=== PATIENT | female | born 1975 | race Caucasian/White ===

== ENCOUNTER 2020-08-19 09:10 | Outpatient (REF) | payer OTHER, MEDICAID, SELFPAY ==
--- NOTE | 2020-08-19 07:30 | PAPFT_PTH ---
PATIENT: Janet Davis LOC: [facility]#:[id number] AGE/SX: 45/F ROOM: RE08/19/[address]: Roland Eldridge : 1975 BED: DIS: 08/19/2020 SPEC #: [id number] RECD: 08/19/20 18:18 STATUS: FRENCH REQ #: [id number] JUAN CARLOS: 08/19/20 07:[address]: Roland Eldridge DEPT: [facility] Cytology RECD BY: Neyda Michael Tissues: 1 - CX/ENDOCX FOR PAP SMEARS Procedures: PAP THIN PREP/[facility] Screening HPV DNA PROBE Comments: [id number] ([place]#)
[2020-08-19 19:41] LABS: Calculated LDL 131 mg/dL (<100); Cholesterol 218 mg/dL (<200); HDL Cholesterol 51 mg/dL (40-60); TSH (W/Ref FT4) 1.66 uIU/mL (0.36-3.74); Triglyceride 181 mg/dL (<150)
== END 2020-08-19 09:30 ==
LOC: NCHCN 09:10
PROVIDERS: PCP Physician Assistant Medical; Visit Provider Physician Assistant Medical
DX: Z12.4 Encounter for screening for malignant neoplasm of cervix; Z11.51 Encounter for screening for human papillomavirus (HPV); N94.6 Dysmenorrhea, unspecified; Z00.8 Encounter for other general examination
CPT/HCPCS: 80061; 88142; 83036; 84443; 87624

== ENCOUNTER 2023-12-11 14:58 | Outpatient (REF) | payer OTHER, SELFPAY ==
[2023-12-11 20:21] LABS: ALT 27 U/L (14-59); AST 13 U/L (15-37); Albumin 3.6 g/dL (3.4-5.0); Alkaline Phosphatase 45 U/L (46-116); Anion Gap 7.7 mmol/L (3-11); BUN 22 mg/dL (7-18); Bilirubin, Total 0.2 mg/dL (0.2-1.0); CO2 28.3 mmol/L (21.0-32.0); CREATININE 0.9 mg/dL (0.55-1.02); Calcium 9.5 mg/dL (8.5-10.1); Calculated LDL 83 mg/dL (<100); Chloride 103 mmol/L (98-107); Cholesterol 190 mg/dL (<200); Estimated GFR 79.85 (mL/min/1.73m2); Glucose 108 mg/dL (74-106); HDL Cholesterol 47 mg/dL (40-60); Potassium 4.3 mmol/L (3.5-5.1); Sodium 139 mmol/L (136-145); Total Protein 7.3 g/dL (6.4-8.2); Triglyceride 302 mg/dL (<150)
== END 2023-12-11 14:59 | disposition home or self-care (01) ==
LOC: NCHCN 14:58
PROVIDERS: PCP Physician Assistant Medical; Visit Provider Physician Assistant Medical
DX: Z00.00 Encounter for general adult medical examination without abnormal findings (principal); Z13.1 Encounter for screening for diabetes mellitus; Z13.220 Encounter for screening for lipoid disorders; Z13.228 Encounter for screening for other metabolic disorders
CPT/HCPCS: 80053; 80061; 83036

== ENCOUNTER → 2023-12-13 00:24 | Outpatient (CLI) | payer OTHER, SELFPAY ==
--- NOTE | 2023-12-13 | DI.MAMMO_ITS ---
Exam(s) MAMMO SCREENING EXAM: MAMMO SCREENING CLINICAL HISTORY: SCREENING, Z12.31 TECHNIQUE: Bilateral full field digital CC and MLO mammographic images were obtained with 3D tomosyn thesis and utilizing computer aided detection (CAD). COMPARISON: This is a baseline examination. FINDINGS: Masses/Architectural Distortion: None seen. Microcalcifications: No suspicious pleomorphic-type are seen. Skin Thickening/Nipple Retraction: None. IMPRESSION: 1. No significant interval change with no specific features of malignancy noted. 2. Unless there is more urgent need, screening mammography is recommended, as per [place] [employer] guidelines. BI-RADS Category 1 - Negative Breast Density - Category B - Scattered areas of fibroglandular density Breast density category C or D implies that the patient has dense breast tissue. Dense breast tissue is very common and is not abnormal but dense breast tissue can make it harder to find cancer on a ma mmogram. Also, dense breast tissue may increase their breast cancer risk. This information about the result of the mammogram report was provided to the patient to raise their awareness. Use this report when you speak with the patient about their risks for breast cancer, which includes their family hist ory. At that time, you may recommend for more screening tests (Ultrasound or MRI) as they might be us eful based on their risk. A negative radiographic report should not delay biopsy if a dominant or clinically suspicious mass is present. Up to ten percent of cancers are not identified on mammography. A negative report may reinforce clinical impression. Adenosis and dense breasts may obscure an underlying neoplasm. False positive reports average 6 to 10%. Patient will receive a letter notifying them of these results.
== END ==
PROVIDERS: PCP Physician Assistant Medical; Visit Provider Physician Assistant Medical
DX: Z12.31 Encounter for screening mammogram for malignant neoplasm of breast (principal)
CPT/HCPCS: 77063; 77067

== ENCOUNTER 2024-04-14 10:02 | Day surgery (SDC) | payer OTHER, SELFPAY ==
[2024-04-14 10:19] VITALS: BP 134/84; PULSE 88; RESP 16; TEMP 36.5; O2SAT 97
[2024-04-14] MEDS: Lactated Ringers 1,000 ML 80 ML IV (10:34)
--- NOTE | 2024-04-14 11:20 | W.ANESPRE ---
General Info Date of Service Date Performed: 04/14/24 Height: 5 ft 6 in Weight: 118.2 kg Body Mass Index (BMI): 42.0 Surgical Procedure: Operation Date: 04/14/24 10:35 Proposed Procedure Side Surgeon p Colonoscopy Dayanara Friedman DO Actual Procedure Side Surgeon p Colonoscopy Not Applicable Dayanara Friedman, Meds Allergies and Home Medications Allergies Allergy/AdvReac Type Severity Reaction Status Date / Time erythromycin base Allergy Mild gi reaction Verified 04/14/24 10:18 amoxicillin [Amoxicillin] Allergy Unknown HIVES Verified 04/14/24 10:18 Home Medication Medication Instructions Recorded comp.stocking,thigh,long,x-lrg ##1 03/06/13 albuterol sulfate 90 mcg/actuation 2 puff inhalation Q4H PRN 01/23/24 aerosol inhaler epinephrine 0.3 mg/0.3 mL 0.3 mg IM ONCE 01/23/24 injection, auto-injector (EpiPen 2-Forest) Current Visit Medications: Current Medications Generic Name Dose Route Start Last Admin Trade Name Freq PRN Reason Stop Dose Admin Ringer's Solution 1,000 mls @ 80 mls/hr 04/14/24 06:00 04/14/24 10:34 IV 04/14/24 23:59 80 mls/hr INFUSION ILDA Administration IV Miscellaneous Supplies 1 each 04/14/24 06:00 Iv Access IV 04/14/24 23:59 DIRECTED ILDA Sodium Chloride 0 ml 04/14/24 06:00 Normal Saline Flush 10 Ml Syr IV 04/14/24 23:59 PRN PRN Sodium Chloride 0 ml 04/14/24 06:00 Normal Saline 10 Ml Vial IJ 04/14/24 23:59 DIRECTED PRN Sterile Water 0 ml 04/14/24 06:00 Water,Injection,Sterile 10 Ml Vial IJ 04/14/24 23:59 DIRECTED PRN PFSH Active Problems Active Problems: Problem Status Onset Code Polycystic ovarian disease E28.2 Sleep apnea G47.30 Fibrocystic disease of breast N60.19 Recurrent major depression F33.9 Surgical History Surgical History S/P excision of ganglion cyst left wrist Uterine fibroid s/p excision, open Tobacco Smoking/Tobacco Use Status: Never Alcohol Alcohol Intake: current Alcohol intake frequency: holidays/special occasions only Substance Use Substance use: Never Substance use type: does not use Vital Signs and Lab Results Vital Signs Most Recent Vital Signs in EMR: Most Recent Vital Signs Temp Pulse Resp BP Pulse Ox 36.5 C 88 16 134/84 97 04/14/24 10:19 04/14/24 10:19 04/14/24 10:19 04/14/24 10:19 04/14/24 10:19 Point of Care Results Point of Care Results: POC- Test(urine) Negative 04/14/24 10:19 Lab Results Blood Type / Crossmatch: No Data to Display Complete Blood Count: No Data to Display Complete Metabolic Panel: No Data to Display Liver Function Panel: No Data to Display Coagulation Panel: No Data to Display Cardiac Panel: No Data to Display Arterial Blood Gas: No Data to Display Venous Blood Gas: No Data to Display Pancreas Panel: No Data to Display Thyroid Panel: No Data to Display Infectious Disease: No Data to Display Blood Cultures: No Data to Display Toxicology Panel: No Data to Display Panel: No Data to Display Anesthesia Assessment and Plan Anesthesia History Personal History: No History of Anesthesia Complications Family History: No Family History of Anesthesia Complications Exercise Tolerance Exercise Tolerance: Metabolic Equivalents>4 Pertinent Negatives Pertinent Negatives: No Symptoms of GERD, No Major Cardiovascular Symptoms or Complaints, No Major Pulmonary Symptoms or Complaints and No History of CVA/TIA Cardiac & Pulmonary Exam Cardiac Exam: Normal S1/S2 Heart Sounds Pulmonary Exam: Clear Bilateral Breath Sounds Implantable Cardiac Device Does patient have a Pacemaker or an ICD?: No Airway Exam Known Difficult Airway: No Mallampati Class: 2 Mouth Opening: Normal (> 3cm) Thyromental Distance: Greater than 3 cm Neck Range of Motion: Full ROM Neck Circumference: Normal Teeth Condition: Normal Dentition ASA Classification ASA Score: ASA 3 Emergency Case?: No NPO Status NPO Status: NPO Clears >2 hours, Solids >8 hours Status Status: Negative HCG Anesthesia Plan Resuscitation Status: Full Code Anesthesia Technique: General Anesthesia Airway Planned: Natural Airway Monitors Used: Standard Monitors
[2024-04-14 11:21] VITALS: BMI 42.0
--- NOTE | 2024-04-14 12:08 | BOWEL_PTH ---
PATIENT: Janet Davis LOC: [facility] U#:[id number] AGE/SX: 48/F ROOM: RE04/14/[address]: Dayanara Friedman : 1975 BED: DIS: 04/14/2024 SPEC #: [id number] RECD: 04/14/24 12:57 STATUS: FRENCH REQ #: [id number] JUAN CARLOS: 04/14/24 12:[address]: Dayanara Friedman DEPT: Surgical Specimen RECD BY: Neyda Michael ENTERED: 04/14/24 12:58 SP TYPE: Bowel OTHR DR: Roland Eldridge Tissues: 1 - BIOPSY BOWEL 2 - BIOPSY BOWEL Procedures: GROSS AND MICRO LEVEL 4 Comments: [id number]
[2024-04-14 12:26] VITALS: BP 116/74; PULSE 80; RESP 16; TEMP 36.1; O2SAT 98
--- NOTE | 2024-04-14 12:45 | PDOC.DSDIS_ITS ---
Date of service: 04/14/24 Time of Service: 12:51 Discharge Plan Disposition Patient Disposition: Home Condition: Good Discharge Details Reason For Visit: Colon scope Attending Provider: Dayanara Friedman Primary Care Provider: Roland Eldridge Home Meds and New Rx's Prescriptions: No Action (DME) comp.stocking,thigh,long,x-lrg 1 EACH misc 1 ea Miscellaneous DAILY Qty: 1 albuterol sulfate 90 mcg/actuation HFA aerosol inhaler 2 puff inhalation Q4H PRN epinephrine [EpiPen 2-Forest] 0.3 mg/0.3 mL auto-injector 0.3 mg IM ONCE Rx Instructions: as a single dose; may repeat once Discharge Instructions Additional Instructions: DSU Colonoscopy Post- Op Instructions Instructions for Everyone who is given Anesthesia: For your safety, please do the following for the next twenty-four (24) hours: *Do Not operate a motor vehicle (car, truck, motorcycle, etc.) *Do Not drink alcoholic beverages or use any recreational drugs for the first 24 hours or while taking pain medications. The medications in your body may have a reaction that can be dangerous. *Do Not make any important decisions or sign any important papers. Findings: X 1 small polyp. My office will send you a letter in 3 to 4 weeks time with the results of the polyp pathology and when we want you to repeat the colonoscopy, most likely 7 to 10 years time. Minor diverticula of the sigmoid colon. Make sure you are moving your bowels on a regular basis and not straining to go to the bathroom. If you find you have problems with chronic constipation/straining, then it is recommended you start a fiber supplement such as Metamucil or psyllium husk's. 1. No lifting over 20 pounds or strenuous activity for the first 24 hours after your procedure. After 24 hours there are no restrictions on your activity but you may feel fatigued for a few days. 2. After you arrive home you may have a light meal and return to your normal diet as you can tolerate it without feeling sick to your stomach. 3. You may have a bloated, gaseous feeling in your belly (abdomen) after a colonoscopy. Passing gas and belching will help. Walking or lying down on your left side with your knees flexed may relieve the discomfort. Call the office at [phone] (Office) or [phone] (Hospital) right away if you notice any of the following: a.Vomiting of blood or ?coffee ground stools?. b.Rectal bleeding 1Tbsp, blood clots or continuous bleeding. c.Severe belly (abdominal) pain. d.A hard distended belly (abdomen) and an inability to pass gas. 4. Please don?t expect to have a normal BM (bowel movement) for 2-3 days after your procedure. 5. If there are questions regarding the findings of your procedure, please contact your doctor 6. If you are unable to contact your doctor with a problem, contact the hospital at [phone]. 7. Continue all your regular medications unless directed otherwise. I understand the above instructions and have no questions. Signature of Patient or Adult Escort Name of Responsible Adult Escort Signature of Nurse Date/Time Stand Alone Forms: Anesthesia Discharge Inst., [place] Di[place] (DSU) Activity:: See above Diet:: See above DS: Diagnosis Discharge Diagnosis (1) Diverticula of colon: Status: Acute Asessment and Plan: The patient is seen and examined after their colonoscopy.? The patient has been able to pass gas.? They are not having abdominal pain.? They have been able to tolerate liquids and a snack.? They do not have any nausea or vomiting.? They are not having any chest pain or shortness of breath.??? They are not having any rectal bleeding. Their vital signs have been stable-see nursing notes. We discussed findings during their colonoscopy, and any biopsies that were done/polyps that were removed. The patient will be sent a letter with any biopsy results, and when to repeat the colonoscopy.-see discharge instructions. Patient was given explicit instructions to follow-up regarding colonoscopy-refer to discharge instructions.? We reviewed resumption of medications. Patient verbalized understanding and discharged in stable and satisfactory condition- See nursing notes. (2) Colon polyp: Status: Acute
--- NOTE | 2024-04-14 12:55 | W.ANESPOSTOP ---
Postoperative Evaluation Date, Time and Location Date Performed: 04/14/24 Time Performed: 12: Patient Location: Day Surgery Unit Vital Signs Most Recent Imported Vital Signs: Most Recent Vital Signs Temp Pulse Resp BP Pulse Ox 36.1 C L 80 16 116/74 98 04/14/24 12:26 04/14/24 12:26 04/14/24 12:04/14/24 12:04/14/24 12: Pain Score Most Recent Pain Score: Most Recent Pain Score Pain Level 0 04/14/24 12:26 Assessment Mental Status: Awake (Alert & Oriented to Patient Baseline) Airway and Respiratory Function: Patent airway with normal (patient baseline) respiratory exam Cardiovascular Function: Hemodynamically Stable Hydration Status: Adequately Hydrated Nausea & Vomiting: No Nausea or Vomiting Pain: Pt. Denies Any Pain Peripheral Nerve Block: Patient did not receive a nerve block
[2024-04-14 12:59] VITALS: BP 104/66; PULSE 65; RESP 16; TEMP 36.5; O2SAT 99
--- NOTE | 2024-04-14 17:33 | W.COLOREPORT ---
Date of service: 04/14/24 Time of Service: 12:30 Colonoscopy Report Date of procedure: 04/14/24 Pre-op diagnosis general: Colorectal cancer screening Post-op diagnosis procedure note: same (Polyps and diverticula) Surgeon: Dayanara Friedman Anesthesia Type: General:No Airway Estimated blood loss (mL): 1 Pathology: other Complications: None Disposition: same day Prep: Miralax/Dulcolax Retraction Time: 10 Procedure Description: After informed consent was obtained the patient was taken to the procedure room and placed in a left decubitous position. Monitors were applied and a time out was done. The patients name, date of , procedure, allergies to medications and metal in their body was reviewed. The patient was then sedated. Once sedated and comfortable a rectal exam was done. External exam was normal. Internal exam revealed a normal sphincter tone and no palpable masses. The scope was then introduced and retrofelexed. No internal hemorrhoids were identified. The scope was then advanced to the cecum without difficulty. The TI and appendiceal orifice were identified. The scope was then slowly retracted over 10 minutes back into the rectum. The patient had x 3, flat 5 mm polyps that were removed all with a cold biting forcep. All specimen is retrieved and no bleeding is noted. She has 1 in the rectum, at 20 cm, and in the cecum. She has diffuse very small scattered diverticula confined in the sigmoid colon with no signs of active bleeding or infection. The mucosa is pink and healthy with a normal vascular pattern. The scope was removed and the patient was woken up and taken back to Same day surgery in stable condition. The patient tolerated the procedure well and there were no immediate complications. Follow up: The patient should follow up in 7 to 10 years, pathology pending, years unless they develop changes in bowel habits or other new gastrointestinal complaints. [place] Bowel Prep [place] Bowel Prep Right Colon: 3 Left Colon: 3 Transverse Colon: 3 Total Score: 9
== END 2024-04-14 13:15 | disposition home or self-care (01) ==
PROVIDERS: PCP Physician Assistant Medical; Visit Provider Surgery
PROC: 0DJD8ZZ Inspection of Lower Intestinal Tract, Via Natural or Artificial Opening Endoscopic (ICD-10-PCS; CPT 45378; principal; 2024-04-14 10:30)
DX: K57.30 Diverticulosis of large intestine without perforation or abscess without bleeding (principal); K63.5 Polyp of colon; G47.30 Sleep apnea, unspecified; Z12.11 Encounter for screening for malignant neoplasm of colon; K62.1 Rectal polyp
CPT/HCPCS: 45380; 81025; 88305; J2704

== ENCOUNTER 2025-09-27 19:14 | Outpatient (REF) | payer OTHER, SELFPAY ==
[2025-09-27 19:37] LABS: HCT 38.7 % (36.0-46.0); HGB 13.1 g/dL (11.2-15.7); MCH 30.5 pg (27.0-33.0); MCHC 33.9 % (32.0-36.0); MCV 90 fL (80-95); MPV 9.7 fL (8.0-11.0); Platelet Count 385 10^3/uL (130-400); RBC 4.30 10^6/uL (3.93-5.22); RDW 12.7 % (11.7-14.6); RDW-SD 41.9 fL; WBC 8.03 10^3/uL (4.4-10.8)
[2025-09-27 19:44] LABS: ALT 17 U/L (10-49); AST 16 U/L (<34); Albumin 4.3 g/dL (3.2-5.0); Alkaline Phosphatase 43 U/L (46-116); Anion Gap 9.6 mmol/L (3-11); BUN 16 mg/dL (9-23); Bilirubin, Total 0.20 mg/dL (0.2-1.2); CO2 25.4 mmol/L (20.0-31.0); Calcium 9.1 mg/dL (8.3-10.6); Chloride 106 mmol/L (98-107); Glucose 99 mg/dL (74-106); Potassium 4.3 mmol/L (3.5-5.1); Sodium 141 mmol/L (136-145); Total Protein 6.8 g/dL (5.7-8.2)
[2025-09-27 19:46] LABS: TSH (W/Ref FT4) 0.98 uIU/mL (0.55-4.78)
[2025-09-27 20:10] LABS: Hemoglobin A1C 6.0 % (<5.7)
== END 2025-09-27 19:15 | disposition home or self-care (01) ==
LOC: NCHCN 19:14
PROVIDERS: PCP Physician Assistant Medical; Visit Provider Physician Assistant Medical
DX: R73.03 Prediabetes (principal); R00.2 Palpitations
CPT/HCPCS: 80053; 85027; 83036; 84443